=== PATIENT | female | born 2000 | race Caucasian/White ===

== ENCOUNTER 2025-04-11 23:35 | Emergency (ER) | payer MEDICAID, SELFPAY ==
--- OUTSIDE RECORDS SUMMARY | 2025-01-10 13:10 | XMS_ITS | Encounter Summary ---
Author Organization [facility] Address [address] [place] [address] Care Team Providers Care Memorandum Statement Clerk Name Role Phone Dalia Lozano APRN UNIVERSITY PRESIDENT Primary Care Provi shruti Dalia Lozano APRN UNIVERSITY PRESIDENT Unavailable + [phone] Anne Vaughn APRN UNIVERSITY PRESIDENT Unavailable Justino Lanier MD Unavailable [phone] Encounter Details Date Type Department Care Team (Latest Contact Info) Description 01/10/2025 1:10 PM CDT Therapy Visit [facility] [address] [address] Anne Vaughn, JEWELL UNIVERSITY PRESIDENT [address] [place], [place] [id number] Becky Bales, PT [address] [place] [address] Lumbar radiculopathy (Primary Dx); Chronic bilateral low back pain without sciatica Social History Tobacco Use Types Packs/Day Years Used Date Smoking Tobacco: Never Passive Smoke Exposure: Past Smokeless Tobacco: Never Alcohol Use Standard Drinks/Week Comments Never 0 (1 standard drink = 0.6 oz pur e alcohol) Social Connection and Isolation Panel [NHANES] A nswer Date Recorded Frequency of Communication with Friends and Fami ly Not on file 09/20/2024 How often do you get togethe r with friends or relatives? Patient declined 09/20/2024 Attends Hoahaoism Services Not on file 09/20 Active Member of Clubs or Organizations Not on f ile 09/20/2024 Attends Club or Organization Meetings Not on familia e 09/20/2024 Marital Status Not on file 09/20/2024 PHQ-2 Answer Date Recorded PHQ-2 Score 2 09/20/2024 [facility] of Occupat ional Health - Occupational Stress Questionnaire Answer Date Recorded Do you feel stress - tense, restless, nervous, or anxious, or unable to sleep at night because your mind is troubled all the time - these days? Only a little 09/20/2024 Exercise Vital Sign Answer Date Recorde d On average, how many days pe r week do you engage in moderate to strenuous exercise (like a brisk walk)? 1 day 09/20/2024 On average, how many minutes do you engage in exercise at this level? 60 min 09/20/2024 Food Insecurity Answer Date Recorded Within the past 12 months, d id you worry that your food would run out before you got money to buy more? No 09/20/2024 Within the past 12 months, d id the food you bought just not last and you didn t have money to get more? No 09/20/2024 Housing Stability Answer Date Recorded Do you have housing? (Housin g is defined as stable permanent housing and does not include staying outside in a car, in a tent, in an abandoned building, in an overnight mcc, or couch-surfing.) Yes 09/20/2024 Are you worried about losing your housing? No 09/20/2024 Financial Resource Strain Answer Date R ecorded Within the past 12 months, h ave you or your family members you live with been unable to get utilities (heat, electricity) when it was really needed? No 09/20/2024 Transportation Needs Answer Date Record ed Within the past 12 months, h as lack of transportation kept you from medical appointments, getting your medicines, non-medical meetings or appointments, work, or from getting things that you need? No 09/20/2024 Interpersonal Safety Answer Date Record ed Do you feel physically and e motionally safe where you currently live? Yes 09/20/2024 Within the past 12 months, h ave you been hit, slapped, kicked or otherwise physically hurt by someone? No 09/20/2024 Within the past 12 months, h ave you been humiliated or emotionally abused in other ways by your partner or ex-partner? No 09/20/2024 Comments No Sex and Gender Information Value Date Recorded Sex Assigned at Not on file Legal Sex Female 5:30 AM CDT Gender Identity Not on file Sexual Orientation Not on file documented as of this encounter Progress Notes * Becky Bales, PT - 03/07/2025 11:00 AM CDT DISCHARGE Reason for Discharge: Patient has failed to schedule further appointments. Equipment Issued: none Discharge Plan: Patient to continue home program. Referring Provider: Anne Vaughn documented in this encounter Plan of Treatment Upcoming Encounters Date Type Department Care Team ([facility] st Contact Info) Description 04/16/2025 8:30 AM CDT Office Visit [facility] [address] [place] [phone] Dalia Lozano APRN UNIVERSITY PRESIDENT [address] [place] [address] documented as of this encounter Visit Diagnoses Diagnosis Lumbar radiculopathy- Primary Thoracic or lumbosacral neuritis or radiculitis, unspecified Chronic bilateral low back pain without sciatica documented in this encounter Care Teams Memorandum Statement Clerk Relationship Specialty Start Date End Date Dalia Lozano APRN UNIVERSITY PRESIDENT [address] [place] [address] PCP - General Family Medicine 09/20/24 Dalia Lozano APRN UNIVERSITY PRESIDENT [address] [place] [address] Assigned PCP 10/20/24 Anne Vaughn APRN UNIVERSITY PRESIDENT [address] [place] [address] Assigned Neuroscience Provider 11/17/24 Justino Lanier MD [address] [place] [address] Physician Neurology 12/24/24 documented as of this encounter
[2025-04-11 23:39] VITALS: BP 161/105; PULSE 85; RESP 16; TEMP 36.5; O2SAT 98; BMI 42.0
[2025-04-11] MEDS: ASPIRIN 81 MG TAB.CHEW 162 MG PO (23:53)
[2025-04-12 00:15] VITALS: BP 157/107; PULSE 66; RESP 18; O2SAT 97
[2025-04-12 00:16] LABS: Hematocrit 39.1 % (33.0-51.0); Hemoglobin* 12.5 gm/dL (12.0-16.0); Immature Granulocytes Abs Auto 0.05 K/uL (0.00-0.30); Immature Granulocytes Pct Auto 0.8 %; Lymphocytes Absolute Auto 2.34 K/uL (0.90-2.90); Mean Corpuscular HGB Conc 32 gm/dL (32-36); Mean Corpuscular Hemoglobin 26 pg (26-34); Mean Corpuscular Volume 80 fL (80-100); RDW Coefficient of Variation % 13.5 % (11.5-15.5); Red Blood Count 4.88 m/uL (4.00-5.20); White Blood Count* 6.61 K/uL (4.50-11.00)
[2025-04-12 00:19] LABS: Slide Review Reflex No
[2025-04-12 00:19] LABS: Ur HCG Qualitative* Negative (Negative)
--- OUTSIDE RECORDS SUMMARY | 2025-04-12 00:24 | XMS_ITS | Encounter Summary ---
Author Organization [facility] Address [address] [place] [address] Care Team Providers Care Sharemilker Name Role Phone Dalia Lozano APRN, CNP Primary Care Provi shruti Dalia Lozano APRN MECHANICAL ENGINEERING COOP Unavailable + [phone] Anne Vaughn APRN MECHANICAL ENGINEERING COOP Unavailable Justino Lanier MD Unavailable [phone] Encounter Details Date Type Department Care Team (Late st Contact Info) Description 11/15/[address] [facility] [address] [place] [phone] Dalia Lozano APRN [facility] [address] [place] [address] Social History Tobacco Use Types Packs/Day Years [...] friends or relatives? Patient declined 09/20/2024 Attends Jehovah'S Witness Services Not on file 09/20 Active Member of Clubs or Organizations Not on f ile 09/20/2024 Attends Club or Organization Meetings Not on familia e 09/20/2024 Marital Status Not on file 09/20/2024 PHQ-2 Answer Date Recorded PHQ-2 Score 2 09/20/2024 [facility] - Occupational Stress Questionnaire Answer Date Recorded [...] Answer Date Recorded Do you have housing? (Cristiane g is defined as stable permanent housing and does not include staying outside in a car, in a tent, in an abandoned building, in an overnight longterm, or couch-surfing.) Yes 09/20/2024 Are you worried [...] on file documented as of this encounter Plan of Treatment Upcoming Encounters Date Type Department Care Team (Late st Contact Info) Description 04/16/2025 8:30 AM CDT Office Visit [facility] [address] [place] [address] Dalia Lozano APRN MECHANICAL ENGINEERING COOP [address] [place] [address] documented as of this encounter Visit Diagnoses Not on filedocumented in this encounter Care Teams Sharemilker Relationship Specialty Start Date End Date Dalia Lozano APRN CNP [address] [place] [address] PCP - General Family Medicine 09/20/24 Dalia Lozano APRN MECHANICAL ENGINEERING COOP [address] [place] [address] Assigned PCP 10/20/24 Anne Vaughn APRN CNP [address] [place], [place] [address] Assigned Neuroscience Provider 11/17/24 Justino Lanier MD [address] [place] [id number] Physician Neurology 12/24/24 documented as of this encounter
--- OUTSIDE RECORDS SUMMARY | 2025-04-12 00:24 | XMS_ITS | Encounter Summary ---
Author Organization [facility] Address [address] [place] [address] Care Team Providers Care Vascular Physician Name Role Phone Dalia Lozano APRN ROUND CUTTER OPERATOR Primary Care Provi shruti Dalia Lozano APRN ROUND CUTTER OPERATOR Unavailable [phone] Anne Vaughn APRN ROUND CUTTER OPERATOR Unavailable Justino Lanier MD Unavailable [phone] Encounter Details Date Type Department Care Team (Late st Contact Info) Description 11/29/2024 MyC Medical Advice [facility] [address] [place] [phone] Rhoda Cervantes, RN Social History Tobacco Use Types Packs/Day Years [...] friends or relatives? Patient declined 09/20/2024 Attends Pentecostalism Services Not on file 09/20 Active Member of Clubs or Organizations Not on f ile 09/20/2024 Attends Club or Organization Meetings Not on familia e 09/20/2024 Marital Status Not on file 09/20/2024 PHQ-2 Answer Date Recorded PHQ-2 Score 2 09/20/2024 [facility] of Occupat ional Health - Occupational Stress [...] Date Recorded Do you have housing? (Cristiane haywood is defined as stable permanent housing and does not include staying outside in a car, in a tent, in an abandoned building, in an overnight mcfp, or couch-surfing.) Yes 09/20/2024 Are you worried [...] Description 04/16/2025 8:30 AM CDT Office Visit [facility] [address] [place] [address] Dalia Lozano APRN CNP [address] [place] [address] documented as of this encounter Visit Diagnoses Not on filedocumented in this encounter Care Teams Vascular Physician Relationship Specialty Start Date End Date Dalia Lozano APRN CNP [address] [place] [address] PCP - General Family Medicine 09/20/24 Dalia Lozano APRN CNP [address] [place] [address] Assigned PCP 10/20/24 Anne Vaughn APRN CNP [address] [place], [place] [id number] Assigned Neuroscience Provider 11/17/24 Justino Lanier MD [address] [place], [place] [phone] Physician Neurology 12/24/24 documented as of this encounter
--- OUTSIDE RECORDS SUMMARY | 2025-04-12 00:25 | XMS_ITS | Clinical Summary ---
Author Organization [facility] Address [address] [place] [address] Care Team Providers Care Railroad Design Consultant Name Role Phone Dalia Lozano APRN EMAIL MARKETING ASSISTANT Primary Care Provi shruti Dalia Lozano APRN EMAIL MARKETING ASSISTANT Unavailable [phone] Anne Vaughn APRN EMAIL MARKETING ASSISTANT Unavailable Justino Lanier MD Unavailable [phone] Allergies Active Allergy Reactions Criticality Noted Date Comments Metformin GI Disturbance Medium 06/11/2024 Took for weight loss approx, 3 years ago Medications Vit-Fe Fumarate-FA ( MULTIVITAMIN PLUS IRON) 27-1 MG TABS Take 1 tablet by mouth daily. Active labetalol (NORMODYNE) 100 MG tabletIndication s:Hypertension Take 100 mg by mouth 2 times daily. Active albuterol (PROAIR HFA/PROVENTIL HFA/VENTOLIN HFA) 108 (90 Base) MCG/ACT inhaler Inhale 2 puffs into the lungs. Active NIFEdipine ER (ADALAT CC) 30 MG 24 hr tabletIndication s:Primary hypertension Take 1 tablet (30 mg) by mouth daily. 90 tablet 3 Active Additional Information Patient not taking.Reported on 11/08/2024 NIFEdipine ER (ADALAT CC) 60 MG 24 hr tabletIndication s:Primary hypertension Take 1 tablet (60 mg) by mouth daily. 90 tablet 3 Active Active Problems Problem Noted Date Diagnosed Date Uncomplicated asthma Hypertension Resolved Problems Problem Noted Date Diagnosed Date Resolved Date Lumbar radiculopathy 12/27/2024 025 Chronic bilateral low back p ain without sciatica 12/27/2024 03/07/2025 Encounter for triage in patient 06/11/2024 09/20/2024 Encounters Date Type Department Care Team Description 02/13/2025 9:43 PM CDT - 02/13/2025 11:09 PM CDT Emergency [facility] Emergency Dept [address] [place] [address] Axel Rodriguez MD Mouth pain; Pain, dental Discharge Disposition: Home or Self Care 02/13/2025 Travel 01/31/2025 Medical Correspondence [facility] Information Management [address] [facility] [address] [place] [address] Scan, Non-Provider [place] POST DEPRESSION SCALE 01/13/2025 MyC Medical Advice [facility] [address] [place] [phone] Jannie Lemus, AGRICULTURE ENGINEER 01/10/2025 1:10 PM CDT Therapy Visit [facility] [place] [address] [place] [phone] Anne Vaughn APRN CNP Maudal, Karen, PT Lumbar radiculopathy (Primary Dx); Chronic bilateral low back pain without sciatica 01/10/2025 Travel from Last 3 Months Immunizations Immunization Administration Dates Next Due COVID-19 12+ (Pfizer) 09/22/2024(Deferre d: Patient Refused - left prior) Comvax (HIB/HepB) 1999,1999 DTAP, 5 Pertussis Antigens (Daptacel) ,11/21/2000,1999,10/28,1999 HIB(PRP-OMP)(PedvaxHIB) 2001,11/21/2000 HPV Quadrivalent 04/11/2012 HPV9 (Gardasil) 06/30/2021 Hepatitis A (Vaqta/Havrix)(P eds 12m-18y) 04/11/2012,03/22/2010 Hepatitis B, Adult (Energix-B/Recombivax HB) 2001 Influenza Vaccine >6 months,quad, PF 06/08/2023, 06/30/2021,05/31/2017 Influenza, Split Virus, Triv alent, Pf (Fluzone\Fluarix) 06/19/2024 MMR (MMRII) 10/14/2004,07/07/2000 Meningococcal ACWY (Menactra ) 05/11/2015 Meningococcal ACWY (Menveo ) 04/11/2012 Pneumococcal (PCV 7) 2001,07/07/2000,05/12 Pneumococcal 23 valent 06/30/2021 Poliovirus, inactivated (IPV) 06/09/2004 ,11/21/2000,1999,10/28,1999 Rhogam 05/07/2024 TDAP (Adacel,Boostrix) 05/07/2024,09/27/2017, Varicella (Varivax) 12/22/2017,03/22/2010,1999 Family History Medical History Relation Comments Depression Father Hypertension Father Obesity Maternal Grandmother Anxiety Disorder Mother Depression Mother Hearing Loss Mother Obesity Mother Relation Status Comments Father Maternal Grandmother Mother Social History Tobacco Use Types Packs/Day Years Used Date Smoking Tobacco: Never Passive Smoke Exposure: Past Smokeless Tobacco: Never Tobacco Cessation:Counseling Given: Not Answered Alcohol Use Standard Drinks/Week Comments Never 0 (1 standard drink = 0.6 oz pur e alcohol) Social Connection and Isolation Panel [NHANES] A nswer Date Recorded Frequency of Communication with Friends and Fami ly Not on file 09/20/2024 How often do you get togethe r with friends or relatives? Patient declined 09/20/2024 Attends Congregation Services Not on file 09/20 Active Member of Clubs or Organizations Not on f ile 09/20/2024 Attends Club or Organization Meetings Not on familia e 09/20/2024 Marital Status Not on file 09/20/2024 PHQ-2 Answer Date Recorded PHQ-2 Score 2 09/20/2024 [facility] - Occupational Stress Questionnaire Answer [...] in an abandoned building, in an overnight fdc, or couch-surfing.) Yes 09/20/2024 Are you worried [...] on file Sexual Orientation Not on file Last Filed Vital Signs Vital Sign Reading Time Taken Comments Blood Pressure 215/131 02/13/2025 10:50 PM CDT Pulse 75 02/13/2025 9:42 PM CDT Temperature 36.7 C (98.1 F) 02/13/2025 9:42 PM CDT Respiratory Rate 18 02/13/2025 9:42 PM CDT Oxygen Saturation 100% 02/13/2025 9:42 PM CDT Inhaled Oxygen Concentration - - Weight 122.7 kg (270 lb 8.1 oz) 02/13/2025 9:42 PM CDT Height 167.6 cm (5' 6) 02/13/2025 9:42 PM CDT Body Mass Index 43.66 02/13/2025 9:42 PM CDT Plan of Treatment Upcoming Encounters Date Type Department Care Team (Late st Contact Info) Description 04/16/2025 8:30 AM CDT Office Visit [address] [phone] Dalia Lozano APRN [facility] [address] [place] [address] Health Maintenance Due Date Last Done Comments ASTHMA ACTION PLAN 1999 BMP 1999 PNEUMOCOCCAL VACCINE: PEDIATRICS (0 to 5 YEARS) AND AT-RISK PATIENTS (6 to 49 YEARS) (2 of 2 - PCV) 06/30/2022 06/30/2021, 2001, 07/07/2000, Additional history exists COVID-19 VACCINE ( season) 2024 06/08/2023, 09/23/2021, 12/30/2020, Additional history exists INFLUENZA VACCINE (#1) 2025 , 06/08/2023, 06/30/2021, Additional history exists ASTHMA CONTROL TEST 07/12/2025 01/09/2025 ANNUAL REVIEW OF HM ORDERS 09/20/2025 09/20/2024 YEARLY PREVENTIVE VISIT 09/20/2025 09/20/2024, 07/17 PAP 07/17/2026 07/17/2023, 07/17/2023 ADVANCE CARE PLANNING 09/20/2029 09/20/2024 DTAP/TDAP/TD VACCINE (9 - Td or Tdap) 05/07/2034 05/07/2024, 09/27/2017, 06/21/2010, Additional history exists ZOSTER VACCINE (1 of 2) 2049 HEPATITIS B VACCINE Completed 2001, 1999, 1999 MENINGITIS VACCINE Completed 05/11/2015, 04/11/2012 HPV VACCINE Completed 06/30/2021, 04/11/2012 HEPATITIS C SCREENING Completed 01/11/2024 HIV SCREENING Completed 01/11/2024, 01/2017, 05/03/2017 PHQ-2 (once per calendar year) Completed 09/20/2024, 09/11/2024 MENINGITIS B VACCINE Aged Out No long er eligible based on patient's age to complete this topic Insurance [facility] Care Teams Railroad Design Consultant Relationship Specialty Start Date End Date Dalia Lozano APRN EMAIL MARKETING ASSISTANT [address] [place] [address] PCP - General Family Medicine 09/20/24 Dalia Lozano APRN EMAIL MARKETING ASSISTANT [address] [place] [address] Assigned PCP 10/20/24 Anne Vaughn APRN EMAIL MARKETING ASSISTANT [address] [place] [phone] Assigned Neuroscience Provider 11/17/24 Justino Lanier MD [address] [place] [phone] Physician Neurology 12/24/24
--- OUTSIDE RECORDS SUMMARY | 2025-04-12 00:25 | XMS_ITS | Encounter Summary ---
Author Organization [facility] Address [address] [place] [address] Care Team Providers Care Artificial Stone Setter Name Role Phone Dalia Lozano APRN SPEED BELT SANDER Primary Care Provi shruti Dalia Lozano APRN SPEED BELT SANDER Unavailable [phone] Anne Vaughn APRN SPEED BELT SANDER Unavailable Justino Lanier MD Unavailable [phone] Encounter Details Date Type Department Care Team (Late st Contact Info) Description 01/13/2025 [facility] [address] [phone] Jannie Lemus, DEVOPS ENGINEER Social History Tobacco Use Types Packs/Day Years [...] friends or relatives? Patient declined 09/20/2024 Attends Scientology Services Not on file 09/20 Active Member of Clubs or Organizations Not on f ile 09/20/2024 Attends Club or Organization Meetings Not on familia e 09/20/2024 Marital Status Not on file 09/20/2024 PHQ-2 Answer Date Recorded PHQ-2 Score 2 09/20/2024 [facility] of Occupat ional Health - Occupational Stress [...] in an abandoned building, in an overnight assisted, or couch-surfing.) Yes 09/20/2024 Are you worried [...] Description 04/16/2025 8:30 AM CDT Office Visit [facility] [address] [place] [address] Dalia Lozano APRN CNP [address] [place] [address] documented as of this encounter Visit Diagnoses Not on filedocumented in this encounter Care Teams Artificial Stone Setter Relationship Specialty Start Date End Date Dalia Lozano APRN CNP [address] [place] [address] PCP - General Family Medicine 09/20/24 Dalia Lozano APRN CNP [address] [place] [address] Assigned PCP 10/20/24 Anne Vaughn APRN CNP [address] [place], [place] [phone] Assigned Neuroscience Provider 11/17/24 Justino Lanier MD [address] [place], [place] [phone] Physician Neurology 12/24/24 documented as of this encounter
[2025-04-12 00:26] LABS: Troponin, Point-of-Care* 0.00 ng/ml (0.01-0.04)
[2025-04-12 00:28] LABS: Chloride* 110 mmol/L (96-114); Potassium* 3.8 mmol/L (3.6-5.1); Sodium* 139 mmol/L (135-149)
[2025-04-12 00:31] LABS: Anion Gap 7 mEq/L (7-15); Blood Urea Nitrogen* 13 mg/dL (5-24); Calcium* 9.6 mg/dL (8.4-10.6); Carbon Dioxide* 22 mmol/L (20-32); Creatinine* 0.9 mg/dL (0.5-1.5); Est. Creatinine Clearance* 89.45; Estimated Glomerular Filt Rate 91 ml/min; Glucose* 94 mg/dL (60-115)
[2025-04-12 00:36] LABS: D Dimer Quantitative* < 0.27 ug/ml (0.00-0.50)
[2025-04-12 00:37] VITALS: BP 149/99; PULSE 77; RESP 16; O2SAT 96
--- NOTE | 2025-04-12 01:08 | ED.CHESTPAIN ---
HPI - Chest Pain General Chief Complaint: Chest Pain Stated Complaint: chest pain, dizziness Time Seen by Provider: 04/11/25 23:59 History of Present Illness HPI narrative: Patient is a 24-year-old woman with history of hypertension who developed chest pain earlier this evening as well as some dizziness. Her EKG upon arrival showed normal sinus rhythm. Full workup at this point is unremarkable. She has had no similar symptoms previously no cough no shortness of breath no fevers no chills no night sweats. She has scribes no diaphoresis no nausea no vomiting. Symptoms are mild substernal and very short term. Related Data Home Medications ?Medication ?Instructions ?Recorded ?Confirmed labetalol 100 mg tablet 100 mg PO BID 04/11/25 04/11/25 Allergies Allergy/AdvReac Type Severity Reaction Status Date / Time No Known Drug Allergies Allergy Verified 04/11/25 23:42 Review of Systems Status of ROS Reports: 10 or more systems reviewed and unremarkable except as noted in History and below PFSH PFS Social History Do you use any of these nicotine containing products: None How often do you have a drink containing alcohol: never AUDIT-C Alcohol total score: 0 Exam Narrative Exam Narrative: EXAM GENERAL: Patient appears comfortable and well. EYES: No scleral icterus. LYMPH: No supraclavicular or cervical lymphadenopathy. SKIN: Visible skin seen during exam normal or with benign process only. EXT: No dependent lower extremity pedal edema. HEART: Regular rate and rhythm with no murmurs, rubs, or gallops. LUNGS: Clear to auscultation bilaterally with no crackles or wheezes. ABD: Soft, non tender, non distended. PSYCH: Good eye contact, speech is not pressured. Const Vital Signs, click to edit/add: Vital Signs - 24 hr 04/11/25 23:39 04/12/25 00:15 04/12/25 00:37 Temperature 97.7 F Pulse Rate [Pulse Oximeter] 85 66 77 Respiratory Rate 16 18 16 Blood Pressure [Right Upper Arm] 161/105 H 157/107 H 149/99 H Pulse Oximetry 98 97 96 Oxygen Delivery Method Room Air Room Air Room Air Course Course ED Course: Patient seen examined. Full workup is unremarkable. This point differential diagnosis is broad and consists of but not limited to pericarditis coronary artery disease myocarditis pulmonary embolism musculoskeletal strain anxiety. Vital Signs Vital signs: Initial Vital Signs Temperature 97.7 F 04/11/25 23:39 Temperature Source Temporal Artery Scan 04/11/25 23:39 Pulse Rate 85 04/11/25 23:39 Respiratory Rate 16 04/11/25 23:39 Blood Pressure 161/105 H 04/11/25 23:39 Blood Pressure Mean 123 H 04/11/25 23:39 Blood Pressure Position Semi-Fowlers 04/11/25 23:39 Pulse Oximetry 98 04/11/25 23:39 Oxygen Delivery Method Room Air 04/11/25 23:39 Vital Signs Temperature 97.7 F 04/11/25 23:39 Pulse Rate 85 04/11/25 23:39 Respiratory Rate 16 04/11/25 23:39 Blood Pressure 161/105 H 04/11/25 23:39 Pulse Oximetry 98 04/11/25 23:39 Oxygen Delivery Method Room Air 04/11/25 23:39 Temperature 97.7 F 04/11/25 23:39 Pulse Rate 77 04/12/25 00:37 Respiratory Rate 16 04/12/25 00:37 Blood Pressure 149/99 H 04/12/25 00:37 Pulse Oximetry 96 04/12/25 00:37 Oxygen Delivery Method Room Air 04/12/25 00:37 Medications Administered Medications: Generic Name Dose Route Start Last Admin Trade Name Freq PRN Reason Stop Dose Admin Aspirin 162 mg 04/11/25 23:47 04/11/25 23:53 Aspirin 81 Mg Tab.Chew PO 04/11/25 23:48 162 mg ONCE ONE Administration MDM - Chest Pain Lab Data Labs: Lab Results 04/11/25 04/11/25 04/11/25 Range/Units 00:03 00:57 23:47 WBC 6.61 (4.50-11.00) K/uL RBC 4.88 (4.00-5.20) m/uL Hgb 12.5 (12.0-16.0) gm/dL Hct 39.1 (33.0-51.0) % MCV 80 (80-100) fL MCH 26 (26-34) pg MCHC 32 (32-36) gm/dL RDW Coeff of Rolando 13.5 (11.5-15.5) % Plt Count 290 (140-440) K/uL Neut % (Auto) 53.5 (42.0-72.0) % Lymph % (Auto) 35.4 (20-44) % Kerr % (Auto) 6.2 (0.0-11.0) % Eos % (Auto) 3.3 (0.0-7.0) % Baso % (Auto) 0.8 (0.0-3.0) % Neut # (Auto) 3.54 (1.7-7.0) K/uL Lymph # (Auto) 2.34 (0.90-2.90) K/uL Kerr # (Auto) 0.40 (0.00-0.90) K/UL Eos # (Auto) 0.22 (0.00-0.50) K/uL Baso # (Auto) 0.05 (0.00-0.30) K/uL Abs Immat Gran (auto) 0.05 (0.00-0.30) K/uL Imm/Tot Granulo (auto) 0.8 % D-Dimer Quant (PE/DVT) < 0.27 (0.00-0.50) ug/ml Sodium 139 (135-149) mmol/L Potassium 3.8 (3.6-5.1) mmol/L Chloride 110 (96-114) mmol/L Carbon Dioxide 22 (20-32) mmol/L Anion Gap 7 (7-15) mEq/L BUN 13 (5-24) mg/dL Creatinine 0.9 (0.5-1.5) mg/dL Estimated Creat Clear 89.45 Estimated GFR 91 ml/min Glucose 94 (60-115) mg/dL Calcium 9.6 (8.4-10.6) mg/dL Lipase 289 (23-300) U/L Urine HCG, Qual Negative (Negative) POC Troponin I 0.00 L (0.01-0.04) ng/ml Discharge Plan Discharge Clinical Impression: Atypical chest pain Patient Disposition: Home, Self-Care Condition: Stable Instructions: Chest Pain (ED) Activity Level: No Restrictions Discharge Diet: Regular Prescriptions: No Action labetalol 100 mg tablet 100 mg PO BID Follow Up/Referrals: Provider,Not a Local [Primary Care Provider, Family Practice] Stand Alone Forms: [facility] Info Instructions
--- NOTE | 2025-04-12 23:46 | CRLHL7_ITS ---
For Patients: As a result of the Century Cures Act, medical imaging exams and procedure reports are released immediately into your electronic medical record. You may view this report before your referring provider. If you have questions, please contact your health care provider. INDICATION: Chest pain. TECHNIQUE: Chest 2 views. COMPARISON: None. FINDINGS: Cardiovascular and mediastinum: Heart size and vasculature are normal in caliber and appearance. Lungs and pleural spaces: No focal consolidation, pleural effusion, or pneumothorax. Bones and soft tissues: Unremarkable for age. IMPRESSION: No evidence of an acute pulmonary process. Dictated by Dong Celeste MD @ 04/12/2025 12:38:29 AM (Electronically Signed)
== END 2025-04-12 01:29 | disposition home or self-care (01) ==
PROVIDERS: Emergency Medicine; Emergency Provider Internal Medicine
DX: R07.89 Other chest pain (principal); R42 Dizziness and giddiness
CPT/HCPCS: 36415; 71046; 80048; 81025; 83690; 84484; 85025; 85379; 93005; 99283; 99284; 99285; A9270